=== PATIENT | female | born 1995 | race Two or more races ===

== ENCOUNTER 2022-06-16 19:17 | Inpatient (IN) | payer OTHER ==
[~2022-06-16] VITALS: Ht 162.6 cm; Wt 57.2 kg
[2022-06-16] MEDS ORDERED: OBSTETRX ONE 38-1-22 PO (20:40)
[2022-06-16] MEDS ORDERED: FERROUS SULFAT325 M1 PO (20:40)
== END 2022-06-19 14:09 | disposition home or self-care (01) | DRG 807 ==
LOC: OB/GYN 19:17 → LDR 19:17 → OB/GYN 06-17 11:20
PROVIDERS: ADMIT Obstetrics & Gynecology; ATTEND Obstetrics & Gynecology
PROC: 4A1HXCZ Monitoring of Products of Conception, Cardiac Rate, External Approach (ICD-10-PCS; 2022-06-16)
PROC: 10E0XZZ Delivery of Products of Conception, External Approach (ICD-10-PCS; principal; 2022-06-17)
PROC: 0KQM0ZZ Repair Perineum Muscle, Open Approach (ICD-10-PCS; 2022-06-17)
DX: O70.1 Second degree perineal laceration during delivery (principal); Z37.0 Single live birth; Z3A.38 38 weeks gestation of pregnancy; Z20.822 Contact with and (suspected) exposure to COVID-19